=== PATIENT | male | born 1980 | race Two or more races ===

== ENCOUNTER 2021-11-13 23:23 | Emergency (ER) | payer OTHER ==
[~2021-11-13] VITALS: Ht 177.8 cm; Wt 122.5 kg
[2021-11-13] MEDS ORDERED: CLONAZEPAM1 MG PO (23:48)
== END 2021-11-14 03:15 | disposition home or self-care (01) ==
LOC: ER 23:23
DX: T51.91XA Toxic effect of unspecified alcohol, accidental (unintentional), initial encounter (principal); F10.129 Alcohol abuse with intoxication, unspecified; F41.0 Panic disorder [episodic paroxysmal anxiety]